=== PATIENT | male | born 1975 | race Caucasian/White ===

== ENCOUNTER 2021-02-04 00:54 | Emergency (ER) | payer OTHER ==
[~2021-02-04] VITALS: Ht 177.8 cm; Wt 83.9 kg
[2021-02-04 01:20] LABS: HEMATOCRIT 44.4 % (36.7-47.1); MEAN CORPUSCULAR HEMOGLOBIN 30.7 uug (23.8-33.4); MEAN CORPUSCULAR VOLUME 90.7 fL (73.0-96.2); PLATELET COUNT (AUTO) 248 K/uL (152-348)
[2021-02-04 01:23] LABS: POTASSIUM 2.9 mmol/L (3.5-5.1)
[2021-02-04] MEDS ORDERED: POTASSIUM CHLORIDE 20 MEQ TAB.PRT.SR PO ONE (01:30)
--- NOTE | 2021-02-04 01:58 | NUR ---
Patient resting on bed, looking at environment, no acute distress noted.
--- NOTE | 2021-02-04 02:04 | NUR ---
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
[2021-02-04] MEDS ORDERED: POTASSIUM CHLORIDE 20 MEQ TAB.PRT.SR ONE ×2 (02:06→02:07)
--- NOTE | 2021-02-04 02:37 | NUR ---
Patient discharged to home in stable condition. Written and verbal after care instructions given. Patient verbalizes understanding of instructions. Stressed follow up or return to ER for worsening s/s. Patient ambulates with steady gait, received paper discharge instructions, IV line removed, and left with all personal belongings.
[2021-02-04 02:40] VITALS: BP 137/78
== END 2021-02-04 02:37 | disposition home or self-care (01) ==
LOC: ER 00:58
DX: F41.0 Panic disorder [episodic paroxysmal anxiety] (principal); E87.6 Hypokalemia; E78.5 Hyperlipidemia, unspecified; I45.10 Unspecified right bundle-branch block
CPT/HCPCS: 36415; 70030-TC; 71045; 85025; 93005; A4663